=== PATIENT | female | born 1980 | race Hispanic/Latino ===

== ENCOUNTER → 2019-07-21 | Outpatient (CLI) | payer OTHER ==
[~2019-07-21] MED LIST: LIDOCAINE 2%-EPI 1:200,000 20 ML VIAL IJ ONE; LIDOCAINE HCL 1% 20 ML VIAL ONE; SODIUM BICARB 50MEQ 50ML VIAL ONE
--- NOTE | 2019-07-21 09:40 | NUR ---
U/S GUIDED BX RIGHT THYROID NODULE PROCEDURE PERFORMED BY DR. MARTINEZ. PUNCTURE SITE RIGHT ANTERIOR NECK. PATIENT TOLERATED PROCEDURE WELL. SPECIMEN X 6 COLLECTED BY JOSÉ ANTONIO POLO, WINDSHIELD TECHNICIAN AND DR. GONZALES PRESENT. END OF PROCEDURE AT 0955. BIOPSY NEEDLE REMOVED AND DRESSING APPLIED. NO BLEEDING NOTED. DISCHARGE INSTRUCTIONS GIVEN TO PATIENT. PT DISCHARGED HOME AMBULATORY, STABLE, AAO X 3, WITH NO C/O PAIN @ 1015.
== END ==
LOC: RAH 07:58
PROVIDERS: ATTEND Family Medicine
DX: E04.2 Nontoxic multinodular goiter (principal); I10 Essential (primary) hypertension; F41.9 Anxiety disorder, unspecified; Z79.82 Long term (current) use of aspirin; Z79.899 Other long term (current) drug therapy; Z98.890 Other specified postprocedural states; Z82.49 Family history of ischemic heart disease and other diseases of the circulatory system; Z87.891 Personal history of nicotine dependence; Z83.3 Family history of diabetes mellitus
CPT/HCPCS: 60100; 76942; 88305; 88333; 88334; J3490 ×2; 88172; 88173; A4215

== ENCOUNTER → 2019-12-04 | Outpatient (CLI) | payer OTHER ==
[~2019-12-04] MED LIST changes: +IOHEXOL-350 50ML VIAL IV ONE; -LIDOCAINE 2%-EPI 1:200,000 20 ML VIAL IJ ONE; -LIDOCAINE HCL 1% 20 ML VIAL ONE; -SODIUM BICARB 50MEQ 50ML VIAL ONE
== END | disposition home or self-care (01) ==
LOC: RAH 12:54
PROVIDERS: ATTEND Otolaryngology
DX: C73 Malignant neoplasm of thyroid gland (principal); R59.1 Generalized enlarged lymph nodes; E89.0 Postprocedural hypothyroidism
CPT/HCPCS: 70491; Q9967

== ENCOUNTER 2020-05-25 09:56 | Inpatient (IN) | payer OTHER ==
[~2020-05-25] VITALS: Ht 165.1 cm; Wt 111.3 kg
[2020-05-25] MEDS ORDERED: METHYLPREDNISOLONE SOD SUCC 40MG/ML 1ML ONE (11:01)
[2020-05-25] MEDS ORDERED: ONDANSETRON HCL 4 MG/2 ML VIAL ONE (11:01)
[2020-05-25] MEDS ORDERED: SODIUM CHLORIDE 0.9% 500ML 500 ML IV ONE (11:02)
[2020-05-25] MEDS ORDERED: CEFTRIAXONE SODIUM 2 GM VIAL ONE (11:02)
[2020-05-25 11:41] LABS: BASOPHILS % (AUTO) 0.3 % (0.0-5.0); EOSINOPHILS % (AUTO) 0.3 % (0.0-8.0); HEMATOCRIT 37.6 % (36-48); MEAN CORPUSCULAR HEMOGLOBIN 27.1 pg (27.0-33.0); MEAN CORPUSCULAR HGB CONC 33.8 g/dL (32.0-36.0); MEAN CORPUSCULAR VOLUME 80.3 fL (79-99); MONOCYTES % (AUTO) 3.7 % (3.0-13.0); PLATELET COUNT (AUTO) 207 K/uL (130-400); RED BLOOD CELL COUNT(AUTO) 4.68 MIL/uL (4.00-5.50); RED CELL DISTRIBUTION WIDTH 14.2 % (11.0-15.5); WHITE BLOOD COUNT (AUTO) 5.9 K/uL (4.8-10.8)
[2020-05-25 11:45] LABS: CARBON DIOXIDE 22 mmol/L (21-32); CHLORIDE 98 mmol/L (101-111); CREATININE 1.2 mg/dL (0.5-1.5); GLOMERULAR FILTR. RATE CALC 53 mL/min (>60); GLUCOSE,RANDOM 93 mg/dL (70-105); POTASSIUM 3.7 mmol/L (3.5-5.1); SODIUM SERUM 136 mmol/L (136-145); UREA NITROGEN, BLOOD 17 mg/dL (7-18)
[2020-05-25 11:54] LABS: INR 0.9 (0.85-1.15); PARTIAL THROMBOPLASTIN TIME 41.3 SEC (26.3-35.5); PROTHROMBIN TIME 9.8 SEC (9.6-11.6)
[2020-05-25 12:05] LABS: ALANINE AMINOTRANSFERASE 99 U/L (12-78); ALBUMIN 3.6 g/dL (3.5-5.0); ASPARTATE AMINOTRANSFERASE 108 U/L (10-37); BILIRUBIN,TOTAL 0.6 mg/dL (0.2-1.0); CREATINE KINASE, TOTAL 235 U/L (21-232); MYOGLOBIN 73 ng/mL (10-92); TOTAL PROTEIN, SERUM 7.2 g/dL (6.0-8.3); TROPONIN I < 0.04 ng/mL (0.00-0.06)
[2020-05-25] MEDS ORDERED: ENOXAPARIN SODIUM 100 MG/1 ML SQ ONE ×2 (13:26→23:13)
[2020-05-25] MEDS ORDERED: ACETAMINOPHEN EXTRA STRENGTH 500 MG TABLET ONE (13:26)
[2020-05-25 13:52] LABS: APPEARANCE,URINE Clear (CLEAR); BILIRUBIN,URINE Small (NEGATIVE); COLOR,URINE Dark Yellow (YELLOW); GLUCOSE, URINE (UA) Negative (NEGATIVE); KETONES,URINE Trace mg/dL (NEGATIVE); LEUKOCYTE ESTERASE ,URINE Small (NEGATIVE); NITRATE,URINE Negative (NEGATIVE); OCCULT BLOOD,URINE Negative (NEGATIVE); PROTEIN,URINE 300 mg/dL (NEGATIVE)
[2020-05-25] MEDS: ENOXAPARIN SODIUM 120 MG/0.8ML SQ SCH (14:00)
[2020-05-25] MEDS ORDERED: IOHEXOL-350 75 ML VIAL IV ONE (14:27)
[2020-05-25 14:31] LABS: RBC,URINE 0-1 /HPF (0-1)
[2020-05-25 14:32] LABS: BACTERIA,URINE Few /HPF (None Seen); SQUAMOUS EPITHELIAL CELL,UR Few /HPF (0-2)
[2020-05-25 14:34] LABS: HYALINE CASTS, URINE 0-1 /LPF (0-1 /LPF)
[2020-05-25] MEDS ORDERED: HYDRALAZINE HCL 20 MG/ML VIAL IV PRN (16:30)
[2020-05-25] MEDS: INSULIN HUMULIN R 100 UNIT/ML 3ML SQ SCH ×2 (16:30→21:00)
[2020-05-25] MEDS ORDERED: GUAIFENESIN-DM 200/20 MG 10 ML PO PRN (16:30)
[2020-05-25] MEDS ORDERED: ALPRAZOLAM 0.25 MG TABLET PO PRN (16:30)
[2020-05-25] MEDS ORDERED: ACETAMINOPHEN 325 MG TAB PO PRN ×2 (16:30)
[2020-05-25] MEDS ORDERED: METOPROLOL TARTRATE 1 MG/ML 5ML VIAL IV PRN (16:30)
[2020-05-25] MEDS: FAMOTIDINE 20MG TAB 20 MG TAB PO SCH (21:00)
[2020-05-25] MEDS ORDERED: FAMOTIDINE/PF 20 MG/2 ML VIAL IV ONE (23:14)
[2020-05-25] MEDS ORDERED: ALPRAZOLAM 0.25 MG TABLET ONE (23:17)
[2020-05-25] MEDS ORDERED: DEXAMETHASONE SOD PHOSPHATE 4 MG/ML 5ML VIAL ONE (23:17)
[2020-05-26] MEDS: ENOXAPARIN SODIUM 120 MG/0.8ML SQ SCH ×2 (02:00→14:00)
[2020-05-26 05:12] LABS: BASOPHILS % (AUTO) 0.3 % (0.0-5.0); HEMATOCRIT 37.5 % (36-48); LYMPHOCYTES % (AUTO) 16.4 % (21.0-51.0); MEAN CORPUSCULAR HEMOGLOBIN 27.1 pg (27.0-33.0); MEAN CORPUSCULAR HGB CONC 33.3 g/dL (32.0-36.0); MEAN CORPUSCULAR VOLUME 81.2 fL (79-99); MONOCYTES % (AUTO) 4.2 % (3.0-13.0); NEUTROPHILS % (AUTO) 77.5 % (40.0-77.0); PLATELET COUNT (AUTO) 205 K/uL (130-400); RED BLOOD CELL COUNT(AUTO) 4.62 MIL/uL (4.00-5.50); RED CELL DISTRIBUTION WIDTH 14.5 % (11.0-15.5); WHITE BLOOD COUNT (AUTO) 3.9 K/uL (4.8-10.8)
[2020-05-26 05:34] LABS: MAGNESIUM 1.8 mg/dL (1.80-2.40); PHOSPHORUS 3.4 mg/dL (2.5-4.9); POTASSIUM 3.7 mmol/L (3.5-5.1)
[2020-05-26] MEDS: INSULIN HUMULIN R 100 UNIT/ML 3ML SQ SCH ×4 (07:30→21:00)
[2020-05-26] MEDS ORDERED: DEXAMETHASONE SOD PHOSPHATE 4 MG/ML 1ML VIAL ONE (08:05)
[2020-05-26] MEDS ORDERED: FAMOTIDINE/PF 20 MG/2 ML VIAL IV ONE (08:05)
[2020-05-26] MEDS: DEXAMETHASONE SOD PHOSPHATE 4 MG/ML 1ML VIAL IVP SCH (09:00)
[2020-05-26] MEDS: FAMOTIDINE 20MG TAB 20 MG TAB PO SCH ×2 (09:00→21:00)
[2020-05-26] MEDS ORDERED: FAMOTIDINE 20MG TAB 20 MG TAB ONE (21:40)
[2020-05-27] MEDS: ENOXAPARIN SODIUM 120 MG/0.8ML SQ SCH ×2 (02:00→14:00)
[2020-05-27 04:40] LABS: BASOPHILS % (AUTO) 0.2 % (0.0-5.0); HEMATOCRIT 39.3 % (36-48); MEAN CORPUSCULAR HGB CONC 33.3 g/dL (32.0-36.0); MONOCYTES % (AUTO) 5.7 % (3.0-13.0); NEUTROPHILS % (AUTO) 74.7 % (40.0-77.0); PLATELET COUNT (AUTO) 280 K/uL (130-400); RED BLOOD CELL COUNT(AUTO) 4.85 MIL/uL (4.00-5.50); WHITE BLOOD COUNT (AUTO) 6.4 K/uL (4.8-10.8)
[2020-05-27 05:30] LABS: MAGNESIUM 1.8 mg/dL (1.80-2.40); POTASSIUM 3.8 mmol/L (3.5-5.1)
[2020-05-27] MEDS: INSULIN HUMULIN R 100 UNIT/ML 3ML SQ SCH ×4 (07:30→21:00)
[2020-05-27] MEDS ORDERED: FAMOTIDINE/PF 20 MG/2 ML VIAL IV ONE ×2 (08:01→20:17)
[2020-05-27] MEDS ORDERED: DEXAMETHASONE SOD PHOSPHATE 4 MG/ML 1ML VIAL ONE (08:01)
[2020-05-27] MEDS: FAMOTIDINE 20MG TAB 20 MG TAB PO SCH ×2 (09:00→21:00)
[2020-05-27] MEDS: DEXAMETHASONE SOD PHOSPHATE 4 MG/ML 1ML VIAL IVP SCH (09:00)
[2020-05-27] MEDS ORDERED: REMDESIVIR (INVESTIGATIONAL) 100 MG in SODIUM CHLORIDE 0.9% 250 ML IV SCH (16:15)
[2020-05-28] MEDS: ENOXAPARIN SODIUM 120 MG/0.8ML SQ SCH ×2 (02:00→13:55)
[2020-05-28 05:11] VITALS: BP 112/77
[2020-05-28 06:42] LABS: BASOPHILS % (AUTO) 0.2 % (0.0-5.0); EOSINOPHILS % (AUTO) 0.2 % (0.0-8.0); HEMATOCRIT 37.8 % (36-48); LYMPHOCYTES % (AUTO) 33.5 % (21.0-51.0); MEAN CORPUSCULAR HEMOGLOBIN 26.3 pg (27.0-33.0); MEAN CORPUSCULAR HGB CONC 32.5 g/dL (32.0-36.0); MEAN CORPUSCULAR VOLUME 80.9 fL (79-99); MONOCYTES % (AUTO) 9.1 % (3.0-13.0); NEUTROPHILS % (AUTO) 55.1 % (40.0-77.0); PLATELET COUNT (AUTO) 256 K/uL (130-400); RED BLOOD CELL COUNT(AUTO) 4.67 MIL/uL (4.00-5.50); RED CELL DISTRIBUTION WIDTH 14.1 % (11.0-15.5); WHITE BLOOD COUNT (AUTO) 4.6 K/uL (4.8-10.8)
[2020-05-28] MEDS: INSULIN HUMULIN R 100 UNIT/ML 3ML SQ SCH ×2 (07:05→11:30)
[2020-05-28 07:22] LABS: ALBUMIN 3.2 g/dL (3.5-5.0); BILIRUBIN,TOTAL 0.4 mg/dL (0.2-1.0); CREATININE 1.1 mg/dL (0.5-1.5); PHOSPHORUS 2.3 mg/dL (2.5-4.9); POTASSIUM 3.1 mmol/L (3.5-5.1); TOTAL PROTEIN, SERUM 7.1 g/dL (6.0-8.3)
[2020-05-28 08:30] VITALS: BP 144/97
[2020-05-28] MEDS: FAMOTIDINE 20MG TAB 20 MG TAB PO SCH (09:08)
[2020-05-28] MEDS: DEXAMETHASONE SOD PHOSPHATE 4 MG/ML 1ML VIAL IVP SCH (09:08)
[2020-05-28] MEDS ORDERED: FURO20TA4 PO (10:10)
[2020-05-28] MEDS ORDERED: DEXA6TAB PO (10:10)
[2020-05-28 11:00] VITALS: BP 133/79
== END 2020-05-28 17:24 | disposition home or self-care (01) | DRG 177 ==
LOC: EDH 09:56 → EDHIP 15:00 → OBSVTOIN 15:00 → 4CH 05-28 02:36
PROVIDERS: ADMIT Internal Medicine; ATTEND Internal Medicine
DX: U07.1 COVID-19 (principal); J12.89 Other viral pneumonia; J96.01 Acute respiratory failure with hypoxia; Z68.41 Body mass index [BMI] 40.0-44.9, adult; A08.4 Viral intestinal infection, unspecified; E86.0 Dehydration; E66.01 Morbid (severe) obesity due to excess calories; I10 Essential (primary) hypertension; C73 Malignant neoplasm of thyroid gland; Z85.850 Personal history of malignant neoplasm of thyroid; Z92.3 Personal history of irradiation; Z88.6 Allergy status to analgesic agent; Z88.8 Allergy status to other drugs, medicaments and biological substances
CPT/HCPCS: 36415; 71045; 71275; 80048; 80053; 81001; 82550; 82728; 82948; 83605; 83735; 83874; 84100; 84145; 84484; 85025; 85378; 85384; 85610; 85730; 86900; 86901; 87040; 87088; 93005; 94760; 99291; G0378; J0696; J1100; J1650; J2405; J2920; J3490; J7040; Q9967; U0003

== ENCOUNTER → 2021-06-10 | Outpatient (CLI) | payer BC, OTHER ==
[~2021-06-10] VITALS: Ht 165.1 cm; Wt 117.8 kg
[~2021-06-10] MED LIST changes: +AMLO-258 PO; +CEFAZOLIN SODIUM 1 GM VIAL IVP SCH; +CETI-89 PO; +DESO1TAB73 PO; +DEXA6TAB PO; +DEXAMETHASONE SOD PHOSPHATE 10MG/ML 1ML VIAL ONE; +EPHEDRINE SULFATE 50 MG/ML AMPULE ONE; +FENTANYL CITRATE PF 50 MCG/1 ML 2ML VIAL ONE; +FURO20TA4 PO; +GLYCOPYRROLATE 1 MG/5 ML SYRINGE ONE; -IOHEXOL-350 50ML VIAL IV ONE; +LEVO200T10 PO; +LEVO25CA4 PO; +LIDOCAINE HCL-MPF 1% 5ML AMP IJ ONE; +MIDAZOLAM HCL 1 MG/ML 2ML VIAL ONE; +NEOSTIGMINE 5MG/5ML SYR IV ONE; +PROPOFOL 10 MG/ML 20ML VIAL IV ONE; +ROCURONIUM 10MG/1ML SYR 10 MG/ML ML ONE; +vitamin d PO
[2021-06-10 10:23] LABS: BASOPHILS % (AUTO) 0.5 % (0.0-5.0); EOSINOPHILS % (AUTO) 2.2 % (0.0-8.0); HEMATOCRIT 37.3 % (36-48); LYMPHOCYTES % (AUTO) 17.3 % (21.0-51.0); MEAN CORPUSCULAR HGB CONC 32.2 g/dL (32.0-36.0); MONOCYTES % (AUTO) 5.5 % (3.0-13.0); PLATELET COUNT (AUTO) 369 K/uL (130-400); RED BLOOD CELL COUNT(AUTO) 4.44 MIL/uL (4.00-5.50)
[2021-06-10 10:29] LABS: APPEARANCE,URINE Clear (CLEAR); BILIRUBIN,URINE Negative (NEGATIVE); COLOR,URINE Yellow (YELLOW); GLUCOSE, URINE (UA) Negative (NEGATIVE); KETONES,URINE Trace mg/dL (NEGATIVE); LEUKOCYTE ESTERASE ,URINE Small (NEGATIVE); NITRATE,URINE Negative (NEGATIVE); OCCULT BLOOD,URINE Negative (NEGATIVE); PH,URINE 6.5 (5.0-8.0); PROTEIN,URINE Trace mg/dL (NEGATIVE)
[2021-06-10 10:30] LABS: CREATININE 0.7 mg/dL (0.5-1.5); POTASSIUM 3.9 mmol/L (3.5-5.1)
[2021-06-10 10:41] LABS: INR 0.94 (0.85-1.15); PROTHROMBIN TIME 10.3 SEC (9.6-11.6)
[2021-06-10 11:30] LABS: BACTERIA,URINE Few /HPF (None Seen); RBC,URINE 0-1 /HPF (0-1); WBC,URINE 0-1 /HPF (0-1)
[2021-06-14 13:37] VITALS: BP 135/64
== END | disposition home or self-care (01) ==
LOC: DAH 10:00 → EDSTATUS 12:00 → DAHIP 06-15 07:41 → UNDOADMIN 06-15 07:41 → UNDODISIN 06-15 19:19
PROVIDERS: ATTEND Orthopaedic Surgery
DX: M17.11 Unilateral primary osteoarthritis, right knee (principal); Z20.822 Contact with and (suspected) exposure to COVID-19; M25.561 Pain in right knee; G89.29 Other chronic pain; Z79.01 Long term (current) use of anticoagulants; Z73.9 Problem related to life management difficulty, unspecified; Z79.899 Other long term (current) drug therapy
CPT/HCPCS: 36415; 80048; 81001; 85025; 85610; 87088; 87635; 87641; G0378; J1100; J2250; J2704; J2710; J3010; J3490

== ENCOUNTER 2021-07-06 09:07 | Inpatient (IN) | payer BC, OTHER ==
[2021-07-06] VITALS (24 sets, daily range): BP systolic 106–142; BP diastolic 56–78
[~2021-07-06] VITALS: Ht 165.1 cm; Wt 118.4 kg
[~2021-07-06 09:07] MED LIST changes: -CEFAZOLIN SODIUM 1 GM VIAL IVP SCH; -DEXA6TAB PO; -DEXAMETHASONE SOD PHOSPHATE 10MG/ML 1ML VIAL ONE; -EPHEDRINE SULFATE 50 MG/ML AMPULE ONE; -FENTANYL CITRATE PF 50 MCG/1 ML 2ML VIAL ONE; -FURO20TA4 PO; -GLYCOPYRROLATE 1 MG/5 ML SYRINGE ONE; +LACTATED RINGERS 1000ML 1,000 ML IV ONE; -LIDOCAINE HCL-MPF 1% 5ML AMP IJ ONE; -MIDAZOLAM HCL 1 MG/ML 2ML VIAL ONE; -NEOSTIGMINE 5MG/5ML SYR IV ONE; -PROPOFOL 10 MG/ML 20ML VIAL IV ONE; -ROCURONIUM 10MG/1ML SYR 10 MG/ML ML ONE
[2021-07-06] MEDS ORDERED: CEFAZOLIN SODIUM 1 GM VIAL ONE ×3 (10:13→22:50)
[2021-07-06] MEDS ORDERED: CELECOXIB 200 MG CAP ONE (11:12)
[2021-07-06] MEDS ORDERED: ACETAMINOPHEN 500 MG TABLET ONE (11:12)
[2021-07-06] MEDS ORDERED: KETOROLAC 15MG/ML VIAL (15MG/ML) ONE (11:12)
[2021-07-06] MEDS ORDERED: TRANEXAMIC ACID 1000MG/10ML ONE ×3 (11:24→17:48)
[2021-07-06] MEDS ORDERED: METOCLOPRAMIDE 10 MG/2 ML VIAL ONE (12:13)
[2021-07-06] MEDS ORDERED: ROPIVACAINE 0.5% 5MG/ML 30ML IJ ONE (14:26)
[2021-07-06] MEDS ORDERED: LIDOCAINE HCL-MPF 1% 5ML AMP IJ ONE (14:27)
[2021-07-06] MEDS ORDERED: ROCURONIUM 10MG/1ML SYR 10 MG/ML ML ONE ×2 (14:27→15:14)
[2021-07-06] MEDS ORDERED: FENTANYL CITRATE PF 50 MCG/1 ML 2ML VIAL ONE ×2 (14:27→15:20)
[2021-07-06] MEDS ORDERED: MIDAZOLAM HCL 1 MG/ML 2ML VIAL ONE (14:27)
[2021-07-06] MEDS ORDERED: PROPOFOL 10 MG/ML 20ML VIAL IV ONE (14:27)
[2021-07-06] MEDS ORDERED: CEFAZOLIN SODIUM 1 GM VIAL IRRIG ONE (15:00)
[2021-07-06] MEDS ORDERED: KETOROLAC 15MG/ML VIAL (15MG/ML) IV PRN (17:00)
[2021-07-06] MEDS ORDERED: ONDANSETRON 4MG INJ IVP PRN (17:00)
[2021-07-06] MEDS ORDERED: POTASSIUM CHLORIDE 20MEQ/100ML 100 ML IV PRN (17:00)
[2021-07-06] MEDS ORDERED: TEMAZEPAM 15 MG CAPSULE PO PRN (17:00)
[2021-07-06] MEDS ORDERED: TRAMADOL HCL 50 MG TABLET PO PRN (17:00)
[2021-07-06] MEDS ORDERED: OXYCODONE HCL 5 MG TAB PO PRN (17:00)
[2021-07-06] MEDS ORDERED: FERROUS FUMARATE 324 MG TABLET PO PRN (17:00)
[2021-07-06] MEDS ORDERED: LIDOCAINE HCL-MPF 1% 2ML VIAL IV PRN (17:00)
[2021-07-06] MEDS ORDERED: POTASSIUM CHLORIDE 10% ELIXIR 20 MEQ/15 ML UDCUP PO PRN (17:00)
[2021-07-06] MEDS ORDERED: DiphenhydrAMINE HCL 50 MG/ML VIAL IVP PRN (17:00)
[2021-07-06] MEDS ORDERED: KCL 20 MEQ ERTAB PO PRN (17:00)
[2021-07-06] MEDS: 0.9%NACL 1000ML 1,000 ML IV SCH (17:00)
[2021-07-06] MEDS ORDERED: CALCIUM CARB 500MG PO PRN (17:00)
[2021-07-06] MEDS ORDERED: [UNRECOGNIZED DRUG - REMARK] MISC STA (17:15)
[2021-07-06] MEDS ORDERED: NEOSTIGMINE 5MG/5ML SYR IV ONE (17:25)
[2021-07-06] MEDS ORDERED: GLYCOPYRROLATE 1 MG/5 ML SYRINGE ONE (17:25)
[2021-07-06] MEDS ORDERED: MEPERIDINE-PF 25 MG/ML SYG ONE ×2 (17:41→17:53)
[2021-07-06] MEDS: ACETAMINOPHEN 500 MG TABLET PO SCH (20:08)
[2021-07-06] MEDS: PREGABALIN 25 MG CAP PO SCH (20:09)
[2021-07-06] MEDS: OXYCODONE HCL 5 MG TAB PO PRN (20:10)
[2021-07-06] MEDS: FAMOTIDINE 20MG TAB PO SCH (20:11)
[2021-07-06] MEDS ORDERED: CELECOXIB 200 MG CAP PO SCH (21:00)
[2021-07-06] MEDS: CEFAZOLIN 3GM /D5W 100ML 100 ML IV SCH (22:00)
[2021-07-07] MEDS: ACETAMINOPHEN 500 MG TABLET PO SCH ×3 (02:12→16:19)
[2021-07-07 04:00] VITALS: BP 136/78
[2021-07-07] MEDS: OXYCODONE HCL 5 MG TAB PO PRN ×5 (04:03→20:29)
[2021-07-07] MEDS: 0.9%NACL 1000ML 1,000 ML IV SCH ×2 (04:15→12:22)
[2021-07-07 05:13] LABS: HEMATOCRIT 32.2 % (36-48); MEAN CORPUSCULAR HEMOGLOBIN 27.1 pg (27.0-33.0); MEAN CORPUSCULAR HGB CONC 32.6 g/dL (32.0-36.0); MEAN CORPUSCULAR VOLUME 83.2 fL (79-99); RED BLOOD CELL COUNT(AUTO) 3.87 MIL/uL (4.00-5.50); RED CELL DISTRIBUTION WIDTH 12.8 % (11.0-15.5); WHITE BLOOD COUNT (AUTO) 14.2 K/uL (4.8-10.8)
[2021-07-07 05:33] LABS: CREATININE 0.7 mg/dL (0.5-1.5); POTASSIUM 3.9 mmol/L (3.5-5.1)
[2021-07-07] MEDS: CEFAZOLIN 3GM /D5W 100ML 100 ML IV SCH (06:00)
[2021-07-07] MEDS ORDERED: CEFAZOLIN SODIUM 1 GM VIAL ONE (06:28)
[2021-07-07 07:46] VITALS: BP 150/73
[2021-07-07] MEDS: POLYETHYLENE GLYCOL 3350 17 GM POWD.PACK PO SCH (08:29)
[2021-07-07] MEDS: PREGABALIN 25 MG CAP PO SCH ×2 (08:29→20:28)
[2021-07-07] MEDS: FAMOTIDINE 20MG TAB PO SCH ×2 (08:30→20:27)
[2021-07-07] MEDS: APIXABAN 2.5 MG TABLET PO SCH ×2 (08:31→20:27)
[2021-07-07] MEDS: CETIRIZINE HCL 5 MG TABLET PO SCH (09:00)
[2021-07-07] MEDS: VITAMIN D 2000 UNIT PO SCH (09:00)
[2021-07-07] MEDS: DESOGESTREL ETHINYL ESTRADIOL PO SCH (09:00)
[2021-07-07] MEDS: AMLODIPINE 5 MG TAB PO SCH (09:00)
[2021-07-07] MEDS ORDERED: HYDROMORPHONE 0.5 MG SYG (0.5MG/0.5ML) ONE (09:56)
[2021-07-07 12:28] VITALS: BP 140/72
[2021-07-07] MEDS ORDERED: [UNRECOGNIZED DRUG - REMARK] MISC STA (15:48)
[2021-07-07 16:23] VITALS: BP 130/68
[2021-07-07 20:01] VITALS: BP 163/78
[2021-07-07 23:40] VITALS: BP 153/58
[2021-07-08] MEDS: ACETAMINOPHEN 500 MG TABLET PO SCH ×3 (01:06→17:00)
[2021-07-08 03:50] VITALS: BP 158/81
[2021-07-08] MEDS ORDERED: LEVOTHYROXINE 112 MCG TABLET PO SCH (06:30)
[2021-07-08] MEDS ORDERED: LEVOTHYROXINE 125 MCG TABLET PO SCH (06:30)
[2021-07-08 07:53] VITALS: BP 157/53
[2021-07-08] MEDS: OXYCODONE HCL 5 MG TAB PO PRN ×2 (07:57→12:42)
[2021-07-08] MEDS: CETIRIZINE HCL 5 MG TABLET PO SCH (07:57)
[2021-07-08] MEDS: FAMOTIDINE 20MG TAB PO SCH (07:58)
[2021-07-08] MEDS: APIXABAN 2.5 MG TABLET PO SCH (07:58)
[2021-07-08] MEDS: PREGABALIN 25 MG CAP PO SCH (07:58)
[2021-07-08] MEDS: AMLODIPINE 5 MG TAB PO SCH (07:58)
[2021-07-08] MEDS: POLYETHYLENE GLYCOL 3350 17 GM POWD.PACK PO SCH (08:01)
[2021-07-08] MEDS: DESOGESTREL ETHINYL ESTRADIOL PO SCH (09:00)
[2021-07-08] MEDS: VITAMIN D 2000 UNIT PO SCH (09:00)
[2021-07-08 11:19] VITALS: BP 163/90
[2021-07-08] MEDS ORDERED: HYDR-4060 PO (15:18)
[2021-07-08] MEDS ORDERED: APIX2.5T PO (15:18)
[2021-07-08 16:34] VITALS: BP 143/70
[2021-07-09] MEDS ORDERED: BISACODYL 10 MG SUPP.RECT RC PRN (17:00)
== END 2021-07-08 19:30 | disposition home health service (06) | DRG 470 ==
LOC: DAHIP 09:07 → EDSTATUS 09:15 → 3DH 19:30
PROVIDERS: ADMIT Orthopaedic Surgery; ATTEND Orthopaedic Surgery
PROC: 0SRC0J9 Replacement of Right Knee Joint with Synthetic Substitute, Cemented, Open Approach (ICD-10-PCS; principal; 2021-07-06 14:30)
DX: M17.11 Unilateral primary osteoarthritis, right knee (principal); Z68.41 Body mass index [BMI] 40.0-44.9, adult; E11.9 Type 2 diabetes mellitus without complications; I10 Essential (primary) hypertension; F41.9 Anxiety disorder, unspecified; M19.90 Unspecified osteoarthritis, unspecified site; E89.0 Postprocedural hypothyroidism; Z20.822 Contact with and (suspected) exposure to COVID-19; Z88.8 Allergy status to other drugs, medicaments and biological substances; Z88.5 Allergy status to narcotic agent; Z88.6 Allergy status to analgesic agent; E66.01 Morbid (severe) obesity due to excess calories
CPT/HCPCS: 36415; 80048; 81025; 85027; 87635; 97039; G0378; J0690; J1170; J1885; J2175; J2250; J2704; J2710; J2765; J2795; J3010; J3490; J7120

== ENCOUNTER 2024-07-29 05:40 | Observation (INO) | payer OTHER ==
[2024-07-25 13:58] VITALS: BP 160/72; PULSE 92; RESP 16; TEMP 98
[2024-07-25 13:58] LABS: BASOPHILS # (AUTO) 0.03 K/uL (0.00-0.20); BASOPHILS % (AUTO) 0.2 % (0.0-5.0); EOSINOPHILS # (AUTO) 0.22 K/uL (0.00-0.70); EOSINOPHILS % (AUTO) 1.6 % (0.0-8.0); HEMATOCRIT 37.6 % (36-48); IMMATURE GRANULOCYTE ABSOLUTE 0.09 K/uL (0-1); LYMPHOCYTES # (AUTO) 2.1 K/uL (1.0-4.8); LYMPHOCYTES % (AUTO) 15.8 % (21.0-51.0); MEAN CORPUSCULAR HEMOGLOBIN 27.3 pg (27.0-33.0); MEAN CORPUSCULAR VOLUME 82.8 fL (79-99); MONOCYTES # (AUTO) 0.6 K/uL (0.1-1.0); MONOCYTES % (AUTO) 4.6 % (3.0-13.0); NEUTROPHILS # (AUTO) 10.3 K/uL (1.8-7.7); NEUTROPHILS % (AUTO) 77.1 % (40.0-77.0); PLATELET COUNT (AUTO) 368 K/uL (130-400); RED BLOOD CELL COUNT(AUTO) 4.54 MIL/uL (4.00-5.50); RED CELL DISTRIBUTION WIDTH 12.7 % (11.0-15.5); WHITE BLOOD COUNT (AUTO) 13.4 K/uL (4.8-10.8)
[2024-07-25 14:08] LABS: POTASSIUM 4.2 mmol/L (3.5-5.1)
[2024-07-25 14:09] LABS: INR 0.95 (0.85-1.15); PROTHROMBIN TIME 10.3 SEC (9.6-11.6)
[2024-07-25 14:11] LABS: PARTIAL THROMBOPLASTIN TIME 35.6 SEC (26.3-35.5)
[2024-07-25 14:44] LABS: APPEARANCE,URINE CLEAR (CLEAR); BILIRUBIN,URINE NEGATIVE (NEGATIVE); COLOR,URINE YELLOW (YELLOW); GLUCOSE, URINE (UA) NEGATIVE (NEGATIVE); KETONES,URINE NEGATIVE (NEGATIVE); LEUKOCYTE ESTERASE ,URINE NEGATIVE Leu/uL (NEGATIVE); NITRATE,URINE NEGATIVE (NEGATIVE); OCCULT BLOOD,URINE SMALL (NEGATIVE); PH,URINE 5.5 (5.0-8.0); PROTEIN,URINE 50 mg/dL (NEGATIVE)
[2024-07-25 14:49] LABS: ADD UA MICROSCOPIC YES
[2024-07-25 14:52] LABS: BACTERIA,URINE RARE /HPF (None Seen); MUCUS,URINE FEW LPF (None Seen); SQUAMOUS EPITHELIAL CELL,UR RARE /HPF (0-2); YEAST,URINE BUDDING RARE /HPF (None Seen)
[~2024-07-29] VITALS: Ht 165.1 cm; Wt 112.9 kg
[2024-07-29] VITALS (31 sets, daily range): BP systolic 126–164; BP diastolic 73–93; PULSE 98–110; RESP 15–19; TEMP 97.1–98.3
[~2024-07-29 05:40] MED LIST changes: +FERR324T23 PO; -LACTATED RINGERS 1000ML 1,000 ML IV ONE; +MILK175C5 PO; +VITAMIN D PO; +VITAMIN E PO; -vitamin d PO
[2024-07-29] MEDS: ceFAZolin SODIUM 2 GM VIAL ONE (06:36)
[2024-07-29] MEDS: LACTATED RINGERS 1000ML 1,000 ML IV ONE (06:36)
[2024-07-29] MEDS ORDERED: VANCOMYCIN 1G/250ML KIT 250 ML IV ONE (07:02)
[2024-07-29] MEDS ORDERED: LIDOCAINE PF 100MG/5ML (2%) SYRINGE 5ML ONE (07:05)
[2024-07-29] MEDS ORDERED: FENTanyl CITRate PF 50 MCG/1 ML 2ML VIAL ONE ×3 (07:07→10:26)
[2024-07-29] MEDS ORDERED: MIDAZOLAM HCL 1 MG/ML 2ML VIAL ONE (07:07)
[2024-07-29] MEDS ORDERED: rocuRONium bROMide 10MG/1ML 5ML VL ONE ×2 (07:07→08:24)
[2024-07-29] MEDS ORDERED: proPOFol 10 MG/ML 20ML VIAL IV ONE (07:07)
[2024-07-29] MEDS ORDERED: NEOSTIGMINE METHYLSULFATE 1MG/ML IV ONE (07:12)
[2024-07-29] MEDS ORDERED: phenylEPHRINE HCL 10 MG/ML 1ML VIAL IV ONE (07:12)
[2024-07-29] MEDS ORDERED: GLYCOPYRROLATE 0.2 MG/ML 5 ML VIAL ONE (07:12)
[2024-07-29] MEDS ORDERED: ketaMINE 50MG/ML SYRINGE 50 MG/ML DISP.SYRIN ONE (07:19)
[2024-07-29] MEDS ORDERED: ROPivacaine 0.5% 5MG/ML 30ML ONE (07:19)
[2024-07-29] MEDS ORDERED: morPHINE PF 100MG/10ML AMP IV ONE (07:23)
[2024-07-29] MEDS ORDERED: dexaMETHasone SOD PHOSPHATE 10MG/ML 1ML VIAL ONE (08:01)
[2024-07-29] MEDS: TRANEXAMIC ACID 1000MG/10ML ONE (08:09)
[2024-07-29] MEDS ORDERED: ondanSETRON 4MG INJ ONE (08:12)
[2024-07-29] MEDS: ceFAZolin SODIUM 1 GM VIAL ONE (08:35)
[2024-07-29] MEDS: ceFAZolin SODIUM 1 GM VIAL IRRIG ONE (08:36)
[2024-07-29] MEDS: TRANEXAMIC ACID 1000MG/10ML IV ONE (09:55)
[2024-07-29] MEDS ORDERED: DiphenhydrAMINE HCL 50 MG/ML VIAL IVP PRN (10:30)
[2024-07-29] MEDS ORDERED: ondanSETRON 4MG INJ IVP PRN (10:30)
[2024-07-29] MEDS ORDERED: FERROUS FUMARATE 324 MG TABLET PO PRN (10:30)
[2024-07-29] MEDS ORDERED: ceFAZolin SODIUM 2 GM VIAL IVPB SCH (10:30)
[2024-07-29] MEDS ORDERED: PoTASSium chl 10% ELIXIR 20MEQ 20 MEQ/15 ML UDCUP PO PRN (10:30)
[2024-07-29] MEDS ORDERED: PoTASSium chloRIDE 20MEQ/100ML 100 ML IV PRN (10:30)
[2024-07-29] MEDS: acetaMINOPHEN 1,000 MG/100 ML VIAL IV ONE (10:57)
[2024-07-29] MEDS: MEPERIDINE-PF 25 MG/ML SYG ONE ×2 (10:58→11:07)
[2024-07-29] MEDS: 0.9%NACL 1000ML 1,000 ML IV SCH (14:45)
[2024-07-29] MEDS: HYDROcodone/APAP 5/325 1 TAB TABLET PO PRN (15:35)
[2024-07-29] MEDS ORDERED: PHARMACY COMMUNICATION MISC SCH (17:00)
[2024-07-29] MEDS: ceFAZolin SODIUM 2 GM VIAL IVPB SCH (17:06)
[2024-07-29] MEDS: APIXaban 2.5 MG TABLET PO SCH (20:31)
[2024-07-29] MEDS: FAMOTIDINE 20MG TAB PO SCH (20:31)
[2024-07-29] MEDS: TEMAZepam 15 MG CAPSULE PO PRN (22:15)
[2024-07-30 03:05] VITALS: BP 150/90; PULSE 94; RESP 17; TEMP 98.3
[2024-07-30 04:27] LABS: HEMATOCRIT 32.6 % (36-48); MEAN CORPUSCULAR HEMOGLOBIN 26.6 pg (27.0-33.0); MEAN CORPUSCULAR HGB CONC 32.5 g/dL (32.0-36.0); MEAN CORPUSCULAR VOLUME 81.7 fL (79-99); RED BLOOD CELL COUNT(AUTO) 3.99 MIL/uL (4.00-5.50); RED CELL DISTRIBUTION WIDTH 12.6 % (11.0-15.5); WHITE BLOOD COUNT (AUTO) 15.7 K/uL (4.8-10.8)
[2024-07-30 04:43] LABS: POTASSIUM 3.4 mmol/L (3.5-5.1)
[2024-07-30] MEDS: levoTHYROxine 75 MCG TABLET PO SCH (05:55)
[2024-07-30] MEDS: levoTHYROxine 100 MCG TABLET PO SCH (05:55)
[2024-07-30 08:00] VITALS: BP 150/86; PULSE 96; RESP 15; TEMP 98
[2024-07-30 08:05] VITALS: O2SAT 93
[2024-07-30] MEDS: PoTASSium chloRIDE 20MEQ ER 20 MEQ ERTAB PO PRN (08:13)
[2024-07-30] MEDS: amLODIPine 5 MG TAB PO SCH (08:14)
[2024-07-30] MEDS: ceTIRIzine HCL 5 MG TABLET PO SCH (08:14)
[2024-07-30] MEDS: polyETHYLene GLYCol 3350 17 GM POWD.PACK PO SCH (08:14)
[2024-07-30] MEDS: VITAMIN D 50 MCG PO SCH (08:16)
[2024-07-30] MEDS: DESOGESTREL ETHINYL ESTRADIOL PO SCH (08:26)
[2024-07-30] MEDS: FERROUS GLUCONATE 324MG TABLET.DR PO SCH (08:32)
[2024-07-30 12:00] VITALS: BP 147/82; PULSE 96; RESP 13; TEMP 97.7
[2024-07-30 16:00] VITALS: BP 138/78; PULSE 104; RESP 14; TEMP 98.3
[2024-07-30] MEDS ORDERED: APIX2.5T PO (16:58)
[2024-07-30] MEDS ORDERED: HYDR-4060 PO (16:58)
[2024-07-31] MEDS ORDERED: levoTHYROxine 25 MCG TABLET PO SCH (06:30)
[2024-08-01] MEDS ORDERED: BisaCODYL 10 MG SUPP.RECT RC PRN (10:30)
== END 2024-07-30 18:40 | disposition home or self-care (01) ==
LOC: DAH 05:40 → DAHIP 05:41 → DAH 05:41 → 4CH 14:45
PROVIDERS: ADMIT Orthopaedic Surgery; ATTEND Orthopaedic Surgery
DX: M17.12 Unilateral primary osteoarthritis, left knee (principal); M25.562 Pain in left knee; I10 Essential (primary) hypertension; E11.9 Type 2 diabetes mellitus without complications; F41.9 Anxiety disorder, unspecified; E03.9 Hypothyroidism, unspecified; E66.9 Obesity, unspecified; Z68.41 Body mass index [BMI] 40.0-44.9, adult; Z79.899 Other long term (current) drug therapy; Z98.890 Other specified postprocedural states
CPT/HCPCS: 80048 ×2; 84703; 85025; 85610; 85730; 87086; 81001; 36415 ×2; 87641; 27447; 64417; 96365; 96366; 81025; 97161; 97116 ×3; 97530 ×6; 85027; G0378 ×30; A4663; J7120 ×2; J3010 ×3; J0690 ×6; J3490 ×6; J1100; J2001; J2250; J2704; J2274; J2405; J2710; J3370; J2175 ×2; J2795; J2371; A9272; A4649 ×2; A4930 ×2; C1776; A5120; A4215; A4223 ×2; A4213; A4222; A4221